=== PATIENT | female | born 1975 | race Caucasian/White ===

== ENCOUNTER 2023-07-17 10:57 | Emergency (ER) | payer MEDICAID, OTHER ==
[~2023-07-17] VITALS: Ht 167.6 cm; Wt 58.0 kg
[2023-07-17 11:08] VITALS: O2SAT 97
[2023-07-17] MEDS: ONDANSETRON 4MG ODT PO ONE (11:30)
[2023-07-17] MEDS: FAMOTIDINE 20MG TABLET PO ONE (11:30)
[2023-07-17] MEDS: MAGNESIUM/ALUMINUM HYDROXIDE/SIMETHICONE 30ML UDC PO ONE (11:30)
[2023-07-17 11:55] LABS: BASOPHILS % 0.4 % (0.0-2.0); HEMATOCRIT. 40.8 % (36.0-48.0); HEMOGLOBIN. 13.5 g/dL (12.0-16.0); LYMPHOCYTES % 39.4 % (20.0-50.0); MEAN CORPUSCULAR HEMOGLOBIN 28.8 pg (28.0-32.0); MEAN CORPUSCULAR HGB CONC 33.1 g/dL (31.0-37.0); MEAN CORPUSCULAR VOLUME 86.9 fL (81.0-99.0); MEAN PLATELET VOLUME 7.4 fl (7.4-10.4); MONOCYTES % 6.2 % (2.0-8.0); PLATELET 514 x1000/uL (130-400); RED BLOOD CELL COUNT 4.69 mill/uL (4.2-5.4); RED CELL DISTRIBUTION WIDTH 15.2 % (11.6-14.6); WHITE BLOOD COUNT 9.7 x1000/uL (4.5-11.0)
[2023-07-17 12:11] LABS: CLARITY URINE CLEAR (CLEAR); COLOR URINE YELLOW (YELLOW); GLUCOSE URINE 3+ (NEGATIVE); KETONES URINE NEGATIVE (NEGATIVE); LEUKOCYTE ESTERASE URINE NEGATIVE (NEGATIVE); NITRITE URINE NEGATIVE (NEGATIVE); OCCULT BLOOD URINE NEGATIVE (NEGATIVE); PROTEIN URINE NEGATIVE (NEGATIVE); SPECIFIC GRAVITY URINE 1.023 (1.005-1.030); UROBILINOGEN URINE 0.2 E.U./dL (0.2-1.0)
[2023-07-17 12:11] LABS: ALANINE AMINOTRANSFERASE 22 IU/L (10-49); ALBUMIN 4.9 g/dL (3.2-4.8); ASPARTATE AMINOTRANSFERASE 16 IU/L (<34); BILIRUBIN TOTAL 0.4 mg/dL (0.1-1.0); CALCIUM 9.3 mg/dL (8.7-10.4); CARBON DIOXIDE 28 mEq/L (21-32); CHLORIDE 104 mEq/L (98-107); CREATININE 0.7 mg/dL (0.6-1.0); GLUCOSE 239 mg/dL (70-105); POTASSIUM 3.9 mEq/L (3.5-5.1); PROTEIN TOTAL 7.5 g/dL (6.0-8.3); SODIUM 139 mEq/L (136-145); UREA NITROGEN BLOOD 17 mg/dL (9-23)
[2023-07-17 12:18] LABS: TROPONIN I HIGH SENSITIVITY < 4 ng/L (3.0-34)
[2023-07-17 12:33] LABS: BACTERIA URINE TRACE; RBC URINE 0-2 /hpf (0-2); SQUAMOUS EPITHELIAL CELL URINE 1+ /lpf (RARE/1+); YEAST URINE NONE SEEN
[2023-07-17] MEDS ORDERED: ACET-2708 MT (12:38)
[2023-07-17] MEDS ORDERED: FAMO40TA7 MT (12:38)
[2023-07-17] MEDS ORDERED: BISM-77 PO (12:38)
[2023-07-17 12:40] VITALS: BP 155/95; PULSE 90; RESP 14; TEMP 97.6
== END 2023-07-17 12:45 | disposition home or self-care (01) ==
LOC: ER 10:57
DX: K29.70 Gastritis, unspecified, without bleeding (principal); K21.9 Gastro-esophageal reflux disease without esophagitis
CPT/HCPCS: 99285; 80053; 81003; 81025; 83690; 85025; 84484; 36415; 74022; 93005; Q0162

== ENCOUNTER 2024-04-10 10:49 | Emergency (ER) | payer OTHER ==
[~2024-04-10] VITALS: Ht 152.4 cm; Wt 63.5 kg
[~2024-04-10 10:49] MED LIST: ACET-2708 MT; BISM-77 PO; FAMO40TA7 MT
[2024-04-10 10:53] VITALS: O2SAT 98
[2024-04-10 11:33] LABS: BASOPHILS % 0.1 % (0.0-2.0); EOSINOPHILS % 0.1 % (0.0-5.0); HEMATOCRIT. 38.4 % (36.0-48.0); HEMOGLOBIN. 12.4 g/dL (12.0-16.0); LYMPHOCYTES % 22.8 % (20.0-50.0); MEAN CORPUSCULAR HEMOGLOBIN 27.2 pg (28.0-32.0); MEAN CORPUSCULAR HGB CONC 32.3 g/dL (31.0-37.0); MEAN CORPUSCULAR VOLUME 84.2 fL (81.0-99.0); MEAN PLATELET VOLUME 7.5 fl (7.4-10.4); PLATELET 477 x1000/uL (130-400); RED BLOOD CELL COUNT 4.56 mill/uL (4.2-5.4); RED CELL DISTRIBUTION WIDTH 17.1 % (11.6-14.6); WHITE BLOOD COUNT 11.1 x1000/uL (4.5-11.0)
[2024-04-10 11:39] LABS: CHLORIDE 106 mEq/L (98-107); POTASSIUM 3.9 mEq/L (3.5-5.1); SODIUM 139 mEq/L (136-145)
[2024-04-10 11:40] LABS: CALCIUM 9.7 mg/dL (8.7-10.4); CARBON DIOXIDE 25 mEq/L (21-32)
[2024-04-10] MEDS ORDERED: CELE100C MT (11:44)
[2024-04-10 11:46] LABS: CREATININE 0.6 mg/dL (0.6-1.0); GLUCOSE 182 mg/dL (70-105); UREA NITROGEN BLOOD 24 mg/dL (9-23)
[2024-04-10 11:48] LABS: ALANINE AMINOTRANSFERASE 20 IU/L (10-49); ALBUMIN 4.5 g/dL (3.2-4.8); ASPARTATE AMINOTRANSFERASE 15 IU/L (<34)
[2024-04-10 11:49] VITALS: BP 144/87; PULSE 84; RESP 16; TEMP 36.72516; O2SAT 98
[2024-04-10 11:49] LABS: BILIRUBIN TOTAL 0.2 mg/dL (0.1-1.0)
[2024-04-10 11:52] LABS: CLARITY URINE CLEAR (CLEAR); COLOR URINE YELLOW (YELLOW); GLUCOSE URINE 3+ (NEGATIVE); PH URINE 5.5 (4.5-8.0); PROTEIN URINE TRACE (NEGATIVE); SPECIFIC GRAVITY URINE 1.049 (1.005-1.030)
[2024-04-10 11:53] LABS: KETONES URINE 1+ (NEGATIVE); LEUKOCYTE ESTERASE URINE NEGATIVE (NEGATIVE); NITRITE URINE NEGATIVE (NEGATIVE); OCCULT BLOOD URINE NEGATIVE (NEGATIVE)
[2024-04-10 11:59] LABS: BACTERIA URINE 1+; RBC URINE 0-2 /hpf (0-2); SQUAMOUS EPITHELIAL CELL URINE 1+ /lpf (RARE/1+); WBC URINE 0-2 /hpf (0-2); YEAST URINE NONE SEEN
[2024-04-10 12:05] LABS: HCG SCREEN NEGATIVE
[2024-04-10 12:14] LABS: BILIRUBIN DIRECT < 0.1 mg/dL (<=3.0)
== END 2024-04-10 11:49 | disposition home or self-care (01) ==
LOC: ER 10:49
DX: M54.50 Low back pain, unspecified (principal); I10 Essential (primary) hypertension; E11.9 Type 2 diabetes mellitus without complications
CPT/HCPCS: 36415; 80048; 80076; 81003; 81025; 84703; 85025; 86850; 86900; 99283

== ENCOUNTER 2024-07-07 11:50 | Emergency (ER) | payer OTHER ==
[~2024-07-07] VITALS: Ht 162.6 cm; Wt 70.0 kg
[~2024-07-07 11:50] MED LIST changes: +CELE100C MT
[2024-07-07 12:00] VITALS: O2SAT 100
[2024-07-07] MEDS ORDERED: CYCL5TAB3 MT (12:28)
[2024-07-07] MEDS ORDERED: TOPUD MT (12:28)
[2024-07-07] MEDS ORDERED: LIDO700A15 TP (12:28)
[2024-07-07 12:50] VITALS: BP 163/82; PULSE 80; RESP 16; TEMP 36.6; O2SAT 100
== END 2024-07-07 12:52 | disposition home or self-care (01) ==
LOC: ER 12:06
DX: M79.18 Myalgia, other site (principal); M19.90 Unspecified osteoarthritis, unspecified site; I10 Essential (primary) hypertension; E11.9 Type 2 diabetes mellitus without complications; Z98.890 Other specified postprocedural states; Z79.1 Long term (current) use of non-steroidal anti-inflammatories (NSAID); Z79.899 Other long term (current) drug therapy
CPT/HCPCS: 99283

== ENCOUNTER 2024-08-12 11:40 | Emergency (ER) | payer OTHER ==
[~2024-08-12] VITALS: Ht 152.4 cm; Wt 62.7 kg
[~2024-08-12 11:40] MED LIST changes: +CYCL5TAB3 MT; +LIDO700A15 TP; +TOPUD MT
[2024-08-12 11:55] VITALS: O2SAT 99
[2024-08-12] MEDS ORDERED: CEPH500T MT (13:05)
[2024-08-12] MEDS ORDERED: LIDO700A30 TP (13:05)
[2024-08-12 13:24] VITALS: BP 140/85; PULSE 84; RESP 18; TEMP 36.7; O2SAT 99
== END 2024-08-12 13:25 | disposition home or self-care (01) ==
LOC: ER 11:40
DX: M54.2 Cervicalgia (principal); M79.644 Pain in right finger(s); I10 Essential (primary) hypertension; E11.9 Type 2 diabetes mellitus without complications; M19.90 Unspecified osteoarthritis, unspecified site; Z79.1 Long term (current) use of non-steroidal anti-inflammatories (NSAID); Z98.890 Other specified postprocedural states; Z79.899 Other long term (current) drug therapy
CPT/HCPCS: 99283

== ENCOUNTER 2024-12-28 13:10 | Emergency (ER) | payer OTHER ==
[~2024-12-28] VITALS: Ht 162.6 cm; Wt 61.6 kg
[~2024-12-28 13:10] MED LIST changes: +CEPH500T MT; +LIDO-53 TP; -LIDO700A15 TP; +LIDO700A30 TP
[2024-12-28 13:28] VITALS: BP 149/86; PULSE 88; RESP 16; TEMP 36.8; O2SAT 98; O2SAT 99
[2024-12-28 15:39] LABS: BASOPHILS % 0.5 % (0.0-2.0); EOSINOPHILS % 2.0 % (0.0-5.0); HEMATOCRIT. 34.7 % (36.0-48.0); HEMOGLOBIN. 11.4 g/dL (12.0-16.0); LYMPHOCYTES % 42.1 % (20.0-50.0); MEAN PLATELET VOLUME 8.3 fl (7.4-10.4); MONOCYTES % 6.6 % (2.0-8.0); NEUTROPHILS % 48.8 % (40.0-76.0); PLATELET 375 x1000/uL (130-400); RED BLOOD CELL COUNT 4.11 mill/uL (4.2-5.4); RED CELL DISTRIBUTION WIDTH 14.6 % (11.6-14.6)
[2024-12-28 15:59] LABS: CREATININE 0.7 mg/dL (0.6-1.0); UREA NITROGEN BLOOD 16 mg/dL (9-23)
== END 2024-12-28 16:46 | disposition left against medical advice (07) ==
LOC: ER 13:10
DX: M54.9 Dorsalgia, unspecified (principal); E11.9 Type 2 diabetes mellitus without complications; I10 Essential (primary) hypertension; Z53.21 Procedure and treatment not carried out due to patient leaving prior to being seen by health care provider
CPT/HCPCS: 36415; 80048; 85025